=== PATIENT | male | born 1950 ===

== ENCOUNTER 2025-04-05 14:30 | Emergency (ER) | payer MEDICARE, SELFPAY ==
[2025-04-05] VITALS (11 sets, daily range): BP systolic 115–144; BP diastolic 71–87; PULSE 85–97; RESP 18–24; TEMP 36.6–36.7; O2SAT 93–95
--- NOTE | ~2025-04-05 | XR_ITS ---
XR chest 1V portable 04/05/2025 14:54 Indication: Shortness of breath Procedure: AP portable chest Comparison: No prior studies for comparison. Findings: Heart size normal. Mild interstitial edema. No significant effusion. No pneumothorax. No ac bony osseous abnormality. There are changes of spinal fusion at the cervicothoracic junction, partiall y visualized. There are osteotomy changes of the distal aspect of the right clavicle. Impression: 1: Mild interstitial edema. Differential diagnosis includes atypical pneumonia. Reviewed, dictated and finalized at location A. Impression: 1: Mild interstitial edema. Differential diagnosis includes atypical pneumonia.
--- NOTE | ~2025-04-05 | CT_ITS ---
CTA chest PE protocol Ordering provider: Vishal Blakely MD History: 74 years Male with . SOA . Comparison: None. Technique: CT angiogram chest was performed following timed intravenous injection of contrast. Thin s lice axial images and reformatted coronal images were obtained. Three dimensional reformatted images of the chest were also obtained using a [employer] workstation. . Automated exposure control and iterati ve reconstruction technique were employed. The dose-length product was 937.53 mGy-cm. 100 mL Omnipaqu e 350 was given IV. Findings: PULMONARY ARTERIES: No pulmonary embolus. VISUALIZED THORACIC INLET: Normal. MEDIASTINUM: Aorta/coronary arteries: Mild atheromatous disease. Heart/other: The heart is slightly enlarged. Lymph nodes: Prevascular and precarinal lymph nodes are noted with the largest measures 1.5 cm. Subca rinal lymph node measuring 2 cm is also noted. Right hilar lymph node is seen measuring 1.9 cm. LUNGS: Pneumonia in the right upper lobe posteriorly with bibasilar pneumonia more on the left side.. No pul monary nodules or masses. No effusions. No pneumothorax. VISUALIZED UPPER ABDOMEN: Soft tissue density is seen above the left adrenal gland which may be a div erticulum from the stomach.. Further evaluation advised.. Otherwise, the visualized upper abdomen is normal. MUSCULOSKELETAL: Soft tissues: The superficial soft tissues are normal. Bones: Age appropriate degenerative changes of the spine. . Left 11th rib fracture is seen. Postopera tive changes in the cervicothoracic area. IMPRESSION: 1. No pulmonary embolism. 2. Bilateral basal pneumonia more on the left side. Pneumonia in the right upper lobe posteriorly. F ollow-up to resolution advised. 3. Mediastinal lymphadenopathy. 4. Soft tissue density above the left adrenal gland which may be a diverticulum from the stomach. Fu rther evaluation advised. Reviewed, dictated and finalized at location A. IMPRESSION: 1. No pulmonary embolism. 2. Bilateral basal pneumonia more on the left side. Pneumonia in the right upp er lobe posteriorly. Follow-up to resolution advised. 3. Mediastinal lymphadenopathy. 4. Soft tissue density above the left adrenal gland which may be a diverticulu m from the stomach. Further evaluation advised.
--- NOTE | 2025-04-05 14:33 | ECG_ITS ---
Test Date: 2025-04-05 14:38:58 Measurements Intervals [place] Rate: 92 P: 28 NE: 230 QRS: -16 QRSD: 81 T: 18 QT: 329 QTc: 407 Interpretive Statements SINUS RHYTHM WITH FIRST DEGREE AV BLOCK CANNOT RULE OF INFERIOR MYOCARDIAL INFARCTION NONSPECIFIC T-WAVE ABNORMALITY ABNORMAL ECG No previous ECG available for comparison Electronically Signed On 04-06-2025 09:44:55 CDT by Pedro Mcmahan M.D.
--- OUTSIDE RECORDS SUMMARY | 2025-04-05 14:44 | XMS_ITS | Patient Health Record ---
Author Organization [facility] Address [address] [place] [address] Care Team Providers Care Tobacco Warehouse Manager Name Role Phone Faizan Stein Primary Care Provider EBONY Frank Unavailable [phone] MINI FISHER Unavailable [phone] Allergies No Known Allergies Reason For Referral No Information Medications Medication SIG (Take, Route, Frequency, Duration) Notes Start Date End Date Status Metformin 1,000 for -2 *Reorder from [employer] for eRx and Interaction Alerts* 05/20/2016 Active TAMSULOSIN 0.4 for -2 *Reorder from [employer] for eRx and Interaction Alerts* 07/03/2016 Active Amoxicillin-Pot Clavulanate 875-125 MG Oral for -2 09/14/2016 Active ROSELINE for -2 *Reorder from [employer] for eRx and Interaction Alerts* 01/02/2022 Active Simvastatin 40 for -2 *Pick strength-f orm from [employer] for eRX* 07/03/2016 Active Zithromax Z-James 250 MG Oral for -2 01/02/2022 Active Lisinopril 5 MG Oral for -2 05/20/2016 A ctive Ketoprofen 200 for -2 *Pick strength-f orm from [employer] for eRX* 08/20/2016 Active Problems Problem Type SNOMED Code ICD Code Onset Dates Problem Status W/U Status Risk Notes Problem 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 (9366399043242) 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) 06/10/20 22 Active confirmed Problem Old myocardial infarction (7924850) Old myocardial infarction (I25.2) 04/20/20 18 Active confirmed Problem Peripheral vascular disease (971216015) Other specified peripheral vascular diseases (I73.89) 08/06/20 Active confirmed Problem 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) 12/10/19 Active confirmed Problem Callosity (113616886) Corns and callosities (L84) 12/10/19 Active confirmed Problem Chronic ulcer of foot (525717115) 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) 02/26/20 22 Active confirmed Problem Non-pressure chronic ulcer of other part of right foot limited to breakdown of skin (L97.511) 06/10/20 22 Active confirmed Problem Non-pressure chronic ulcer of other part of right foot with fat layer exposed (L97.512) 03/25/20 Active confirmed Problem Long-term current use of anticoagulant (645261314) 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 anticoagulants (Z79.01) 04/20/20 Active confirmed Problem Essential hypertension (32930788) Essential (primary) hypertension (I10) 04/20/20 Active confirmed Vital Signs Height-cm 182.88 cm 08/14/2024 Weight-kg 113.4 kg 08/14/2024 Height 72 in 08/14/2024 Weight 250 lbs 08/14/2024 BMI 33.9 kg/m2 08/14/2024 Encounters Encounter Location Date Provider Diagnosis [facility] [address] [place] [address] 08/07/2024 MINI FISHER Contusion of right great toe with damage to nail, initial encounter S90.211A [facility] [address] [place] [address] 08/14/2024 MINI FISHER Unspecified open wound of right great toe with damage to nail, subsequent encounter S91.201D Assessments Encounter Date Diagnosis (ICD Code) Assessment Notes Treatment Notes Treatment Clinical Notes Section Notes 08/07/2024 Contusion of right great toe with damage to nail, initial encounter (ICD-10 - S90.211A) I was able to perform an evacuation of the subungual hematoma right great toenail. A moderate amount of serosanguineous exudate drain from beneath it. I was also able to perform much debridement of the nail plate to avoid impingement on to the nail bed and continuing the trauma. The patient will apply topical antibiotic and Band-Aid daily. 08/14/2024 Unspecified open wound of right great toe with damage to nail, subsequent encounter (ICD-10 - S91.201D) The patient may stop the topical antibiotic and Band-Aid. I explained that the nail may grow out deformed because of the injury and major problems with recurrent infected ingrown nails. We'll just have to see this as it grows out. Plan Of Treatment No Information Insurance Providers Payer Name Payer Address Payer Phone Subscriber Number Group Number Insured Name Patient Relationship to Insured Coverage Start Date Coverage End Date [employer] MED[employer] [address] [place] [address] [id number] CHRISTIAN CAMACHO Self - patient is the insured 2
--- OUTSIDE RECORDS SUMMARY | 2025-04-05 14:44 | XMS_ITS ---
Author Organization [employer] Address [address] [place] [address] Care Team Providers Care Regional Agronomist Name Role Phone Faizan Stein Primary Care Provider EBONY Frank Unavailable [phone] MINI AMRBIZ Unavailable [phone] REASON FOR VISIT TOE PAIN Medications Medication SIG (Take, Route, Frequency, Duration) Notes Start Date End Date Status TAMSULOSIN 0.4 for -2 *Reorder from [employer] for eRx and Interaction Alerts* 07/03/2016 Active Metformin 1,000 for -2 *Reorder from [employer] for eRx and Interaction Alerts* 05/20/2016 Active Ketoprofen 200 for -2 *Pick strength-f orm from [employer] for eRX* 08/20/2016 Active Zithromax Z-James 250 MG Oral for -2 01/02/2022 Active Lisinopril 5 MG Oral for -2 05/20/2016 A ctive ROSELINE for -2 *Reorder from [employer] for eRx and Interaction Alerts* 01/02/2022 Active Simvastatin 40 for -2 *Pick strength-f orm from [employer] for eRX* 07/03/2016 Active Amoxicillin-Pot Clavulanate 875-125 MG Oral for -2 09/14/2016 Active Vital Signs Height 72 in 08/07/2024 Weight 250 lbs 08/07/2024 BMI 33.9 kg/m2 08/07/2024 Height-cm 182.88 cm 08/07/2024 Weight-kg 113.4 kg 08/07/2024 Encounters Encounter Location Date Provider Diagnosis [employer] [facility] [address] [place] [address] 08/07/2024 MINI AMBRIZ Contusion of right great toe with damage to nail, initial encounter S90.211A Assessments Encounter Date Diagnosis (ICD Code) Assessment [...] will apply topical antibiotic and Band-Aid daily. Plan Of Treatment Treatment Notes Assessment Notes Contusion of right great toe with damage to nail, initial encounter I was able to perform an evacuation of t brittny subungual hematoma right great toenail. A moderate amount of serosanguineous exudate drain from beneath it. I was also able to perform much debridement of the nail plate to avoid impingement on to the nail bed and continuing the trauma. The patient will apply topical antibiotic and Band-Aid daily. Next Appt Details Follow Up: 1 Week, Reason: F ollow-up injured nail Progress Notes * CHRISTIAN CAMACHO DDOB:1950 (74 yo M)Acc No.[id number]:08/07/2024 Patient: CHRISTIAN BARKER Provider: Sarah Ambriz DPM :1950 A ge:74 Y S ex:Male Date:08/07/2024 Address:[address] [place], [place] [id number] Pcp:Faizan Stein Subjective: * Chief Complaints: * T OE PAIN * HPI: T ransition of Care: The patient presents for evaluation of an injured right great toenail after he dropped a shower mount onto it. Pain is moderate by this noted discoloration beneath it and the nail appears raised. He has not performed any treatment for this. He is concerned about swelling of the foot after this occurred. * ROS: G eneral / Constitutional: Patient denies c hills, fatigue, fever. * Medical History: * Surgical History: * Hospitalization/Major Diagno stic Procedure: * Social History: M igrated Social History: M igrated Social History: Smoking : Current Every Day , Recorded Date: 12/10/2022. * Medications: T akingKetoprofen 200 , Notes to Pharmacist: *[facility]*Metformin 1,000 , Notes to Pharmacist: *[facility]*TAMSULOSIN 0.4 , Notes to Pharmacist: *[facility] for [facility]Rx and Interaction Alerts*Amoxicillin-Pot Clavulanate 875-125 MG Tablet Oral ROSELINE , Notes to Pharmacist: *[facility] for [facility] and Interaction Alerts*Simvastatin 40 , Notes to Pharmacist: *[facility] strength[facility] from [facility] for [facility]*Zithromax Z-James 250 MG Tablet Oral Lisinopril 5 MG Tablet Oral Taking Ketoprofen 200 , Notes to Pharmacist: *[facility] from [facility] for [facility]*Taking Metformin 1,000 , Notes to Pharmacist: *[facility] for [facility]Rx and Interaction Alerts*Taking TAMSULOSIN 0.4 , Notes to Pharmacist: *[facility] and Interaction Alert[facility]*Taking Amoxicillin-Pot Clavulanate 875-125 MG Tablet Oral Taking ROSELINE , Notes to Pharmacist: *[facility] and Interaction Alerts*Taking Simvastatin 40 , Notes to Pharmacist: *[facility]*Taking Zithromax Z-James 250 MG Tablet Oral Taking Lisinopril 5 MG Tablet Oral Objective: * Vitals: H t: 72 in, Wt:250lbs, BMI:33.9Index, Wt-k.4 kg, Ht-cm: 182.88 cm, Body Surface Area: 2.4. * Examination: G eneral Examination: T he right great toenail has dark ecchymosis beneath the nail plate. The nail appears raised from the nail bed. There was little edema around the skinfolds and mild erythema present. V ascular: Dorsalis pedis pulse: b ilateral palpable . Posterior tibial pulse: b ilateral palpable . Capillary refill: b ilaterally instantaneous . Temperature gradient: b ilaterally within normal limits . I ntegument: skin color texture turgor WNL except noted above. N eurological: sharp dull sensation proprioception intact. Assessment: * Assessment: 1. C ontusion of right great toe with damage to nail, initial encounter - S90.211A (Primary) Plan: * Treatment: * Procedure Codes: 1 1740 DRAIN BLOOD FROM UNDER NAIL * Follow Up: 1 Week (Reason: Follow-up injured nail) * Billing Information: * Visit Code: * Procedure Codes: 46541 DRAIN BLOOD FROM UNDER NAIL. * Sign off status: Completed true * Provider: Sarah Ambriz DPM Date: 0 08/07/2024 Generated for Beatriz morales/Rosa/Alvino on: 0 04/05/2025 02:44 PM CDT History and Physical Notes * HPI (History of Present Illness) Category Sub-Category Detail Notes Category Not es Transition of Care The patie nt presents for evaluation of an injured right great toenail after he dropped a shower mount onto it. Pain is moderate by this noted discoloration beneath it and the nail appears raised. He has not performed any treatment for this. He is concerned about swelling of the foot after this occurred. Examination Category Sub-Category Detail Notes Category Not es Vascular Dorsalis pedis pulse: bilateral palpable Integument: skin color texture turgor WNL except noted above. Neurological: sharp dull sensation proprioception intact Capillary refill: bilaterally instanta neous Temperature gradient: bilaterally within normal limits Posterior tibial pulse: bilateral palpab le General Examination The righ t great toenail has dark ecchymosis beneath the nail plate. The nail appears raised from the nail bed. There was little edema around the skinfolds and mild erythema present.
--- OUTSIDE RECORDS SUMMARY | 2025-04-05 14:44 | XMS_ITS ---
Author Organization [employer] Address [address] [place] [address] Care Team Providers Care Carbon Paste Mixer Operator Name Role Phone Faizan Stein Primary Care Provider EBONY Frank Unavailable [phone] MINI AMBRIZ Unavailable [phone] REASON FOR VISIT FOLLOW UP Medications Medication SIG (Take, Route, Frequency, Duration) Notes Start Date End Date Status ROSELINE for -2 *Reorder from [employer] for eRx and Interaction Alerts* 01/02/2022 Active Simvastatin 40 for -2 *Pick strength-f orm from [employer] for eRX* 07/03/2016 Active Zithromax Z-James 250 MG Oral for -2 01/02/2022 Active Lisinopril 5 MG Oral for -2 05/20/2016 A ctive Ketoprofen 200 for -2 *Pick strength-f orm from [employer] for eRX* 08/20/2016 Active Metformin 1,000 for -2 *[facility]* 05/20/2016 Active TAMSULOSIN 0.4 for -2 *Reorder from [employer] for eRx and Interaction Alerts* 07/03/2016 Active Amoxicillin-Pot Clavulanate 875-125 MG Oral for -2 09/14/2016 Active Vital Signs Height 72 in 08/14/2024 Weight 250 lbs 08/14/2024 BMI 33.9 kg/m2 08/14/2024 Height-cm 182.88 cm 08/14/2024 Weight-kg 113.4 kg 08/14/2024 Encounters Encounter Location Date Provider Diagnosis [employer] [facility] [address] [place] [address] 08/14/2024 MINI AMBRIZ Unspecified open wound of right great toe with damage to nail, subsequent encounter S91.201D Assessments Encounter Date Diagnosis (ICD Code) Assessment Notes Treatment Notes Treatment Clinical Notes Section Notes 08/14/2024 Unspecified open wound of right great toe with damage to nail, subsequent encounter (ICD-10 - S91.201D) The patient may stop the topical antibiotic and Band-Aid. I explained that the nail may grow out deformed because of the injury and major problems with recurrent infected ingrown nails. We'll just have to see this as it grows out. Plan Of Treatment Treatment Notes Assessment Notes Unspecified open wound of ri ght great toe with damage to nail, subsequent encounter The patient may stop the topical antibiotic and Band-Aid. I explained that the nail may grow out deformed because of the injury and major problems with recurrent infected ingrown nails. We'll just have to see this as it grows out. Next Appt Details Follow Up: prn, Reason: Progress Notes * CAMACHOCHRISTIAN Smith DDOB:1950 (74 yo M)Acc No.[id number]:08/14/2024 Progress Notes Patient: CHRISTIAN BARKER Provider: Sarah Ambriz DPM :1950 A ge:74 Y S ex:Male Date:08/14/2024 Address:[address] [place] [address] [facility] Pcp:Faizan Stein Subjective: * Chief Complaints: * F OLLOW UP * HPI: T ransition of Care: The patient presents for evaluation of injury to the right great toenail and the patient relates that the appearance was much improved. * ROS: G eneral / Constitutional: Patient denies c hills, fatigue, fever. * Medical History: * Surgical History: * Hospitalization/Major Diagno stic Procedure: * Social History: M igrated Social History: M igrated Social History: Smoking : Current Every Day , Recorded Date: 12/10/2022. * Medications: T akingKetoprofen 200 , Notes to Pharmacist: *Pick strength-form from [facility] for eRX*Metformin 1,000 , Notes to Pharmacist: *Reorder from [employer] for eRx and Interaction Alerts*TAMSULOSIN 0.4 , Notes to Pharmacist: *[facility]*Amoxicillin-Pot Clavulanate 875-125 MG Tablet Oral ROSELINE , Notes to Pharmacist: *[facility]*Simvastatin 40 , Notes to Pharmacist: *[facility]*Zithromax Z-James 250 MG Tablet Oral Lisinopril 5 MG Tablet Oral Taking Ketoprofen 200 , Notes to Pharmacist: *[facility]*Taking Metformin 1,000 , Notes to Pharmacist: *[facility]*Taking TAMSULOSIN 0.4 , Notes to Pharmacist: *[facility] and Interaction [facility]*Taking Amoxicillin-Pot Clavulanate 875-125 MG Tablet Oral Taking ROSELINE , Notes to Pharmacist: *[facility] and Interaction [facility]*Taking Simvastatin 40 , Notes to Pharmacist: *[facility]*Taking Zithromax Z-James 250 MG Tablet Oral Taking Lisinopril 5 MG Tablet Oral Objective: * Vitals: H t: 72 in, Wt:250lbs, BMI:33.9Index, Wt-k.4 kg, Ht-cm: 182.88 cm, Body Surface Area: 2.4. * Examination: G eneral Examination: T here is no further erythema, edema, nor drainage for the right great toenail nail bed. No pain is noted on palpation. Assessment: * Assessment: 1. U nspecified open wound of right great toe with damage to nail, subsequent encounter - S91.201D (Primary) Plan: * Treatment: * Procedure Codes: * Follow Up: p rn * Billing Information: * Visit Code: 53332 Office Visit, Est Pt., Level 2. * Procedure Codes: * Sign off status: Completed true * Provider: Sarah Ambriz DPM Date: 08/14/2024 Generated for Maryi carmen/Rosa/Bobitting on: 04/05/2025 02:43 PM CDT History and Physical Notes * HPI (History of Present Illness) Category Sub-Category Detail Notes Category Not es Transition of Care The patie nt presents for evaluation of injury to the right great toenail and the patient relates that the appearance was much improved. Examination Category Sub-Category Detail Notes Category Not es General Examination There is no further erythema, edema, nor drainage for the right great toenail nail bed. No pain is noted on palpation.
--- OUTSIDE RECORDS SUMMARY | 2025-04-05 14:44 | XMS_ITS | Encounter Summary ---
Author Organization [facility] Address [address] [place] [address] Care Team Providers Care Production Trainer Name Role Phone Jason Restrepo MD Unavailable [phone] Faizan Stein MD Primary Care Provider [phone] Branden Berrios APRN Unavailable [phone] Rocky Briseno MD Unavailable [phone] Azam Caraballo MD Unavailable Susana Edwards ASSEMBLER FINAL-BC Unavailable Elvia Ortega NP Unavailable [phone] Richardson Murcia MD Unavailable Encounter Details Date Type Department Care Team (Late st Contact Info) Description 06/14/2015 Abstract [facility] [address] [place] [address] Jason Restrepo MD [address] [place] [address] Social History Tobacco Use Types Packs/Day Years Used Date Smoking Tobacco: Smoker, Current Status Unknown Cigars Alcohol Use Standard Drinks/Week Comments Yes 0 (1 standard drink = 0.6 oz pur e alcohol) On occasion Sex and Gender Information Value Date Recorded Sex Assigned at Not on file Legal Sex Male 8:27 PM CDT Gender Identity Not on file Sexual Orientation Not on file 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 Not on file Not on file documented as of this encounter Plan of Treatment Upcoming Encounters Date Type Department Care Team (Late st Contact Info) Description 02/14/2026 9:45 AM CDT Office Visit [facility] [address] [place] [address] Elvia Ortega, AMALIA [address] [facility] [address] [place] [address] documented as of this encounter Visit Diagnoses Not on filedocumented in this encounter Additional Health Concerns Infection Onset Date Last Indicated Resolved Time COVID-19 Rule Out 07/27/2020 07/27/2020 07/28/2020 11:55 AM CDT documented as of this encounter Care Teams Production Trainer Relationship Specialty Start Date End Date Faizan Stein MD [facility] [place] [address] PCP - General FAMILY PRACTICE 09/13/17 Jason Restrepo MD CARDIOVASCULAR DISEASE 08/19/16 01/26/25 Branden Berrios APRN [facility] [place] [address] Nurse Practitioner NURSE PRACTITIONER 06/12/19 01/26/25 Rocky Briseno MD [address] [place] [address] RECONSTRUCTIVE SURGERY 01/21/22 Azam Caraballo MD [address] [place] [address] Consulting Physician CARDIOVASCULAR DISEASE 01/22/25 Susana Edwards, ASSEMBLER FINAL- [address] [place] [address] NURSE PRACTITIONER 01/18/25 02/13/25 Elvia Ortega NP [address] [facility] [address] [place] [address] Nurse Practitioner Nurse Practitioner Family 02/14/25 Richardson Murcia MD [address] [place], [place] [address] Consulting Physician INTERVENTIONAL CARDIOLOGY 02/14/25 documented as of this encounter
--- OUTSIDE RECORDS SUMMARY | 2025-04-05 14:45 | XMS_ITS | Clinical Summary ---
Author Organization [facility] Address [address] [place] [address] Care Team Providers Care Film Or Tape Librarian Name Role Phone Faizan Stein MD Primary Care Provider Singh Dee MD Unavailable [phone] Allergies Active Allergy Reactions Criticality Noted Date Comments Cat Dander Eye irritation Medium Medications dulaglutide (Trulicity) 1.5 mg/0.5 mL pen injectorIndicati ons:type 2 diabetes mellitus Inject 1.5 mL (4.5 mg total) under the skin once a week Fridays01/10/20 23 Active gabapentin (NEURONTIN) 300 mg capsuleIndicatio ns:Neuropathic Pain Take 2 capsules (600 mg total) by mouth 3 (three) times a day Last dose 03/06/25 3 03/29/20 24 Active flaxseed oiL 1,000 mg capsuleIndicatio ns:supplement Take 1 capsule (1,000 mg total) 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 Active ascorbic acid (VITAMIN C) 1,000 mg tabletIndication s:Vitamin C Deficiency Take 1 tablet (1,000 mg total) 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 Active aspirin 81 mg enteric coated tabletIndication s:prevention of thrombosis Take 1 tablet (81 mg total) 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 Last dose 03/07/25 11/26/19 08 Active lisinopriL (PRINIVIL,ZESTRI L) 5 mg tabletIndication s:hypertension Take 1 tablet (5 mg total) 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 Active metFORMIN (GLUCOPHAGE) 1,000 mg tabletIndication s:type 2 diabetes mellitus Take 1 tablet (1,000 mg total) by mouth daily with breakfast 07/05/20 18 Active multivitamin-min erals-lutein (Multivitamin 50 Plus) tabletIndication s:supplement Take 1 tablet 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 Active acetaminophen 500 mg capsuleIndicatio ns:Fever,Pain Take 2 capsules (1,000 mg total) by mouth every 6 (six) hours 0 03/23/20 25 025 Active albuterol HFA (PROVENTIL HFA,VENTOLIN HFA,PROAIR HFA) 90 mcg/actuation inhaler Inhale 2 puffs every 4 (four) hours as needed for wheezing 0 03/23/20 025 Active atorvastatin (LIPITOR) 10 mg tablet Take 1 tablet (10 mg total) by mouth daily 1 03/24/20 25 025 Active cyclobenzaprine (FLEXERIL) 5 mg tablet Take 1 tablet (5 mg total) by mouth 3 (three) times a day as needed for muscle spasms 0 03/23/20 25 025 Active enoxaparin (LOVENOX) 40 mg/0.4 mL syringeIndicatio ns:Deep Vein Thrombosis Prevention Inject 0.4 mL (40 mg total) under the skin daily While at [facility], okay to discontinue when discharged from Rehab or when Ambulating well 0 03/23/20 25 Active ergocalciferol (VITAMIN D) 50,000 unit capsuleIndicatio ns:Vitamin D Deficiency Take 1 capsule (50,000 Units total) by mouth once a week 0 03/26/20 25 025 Active lidocaine (LIDODERM) 5 % Place 2 patches on the skin daily for 12 hours Remove & discard patch within 12 hours or as directed by . 0 03/24/20 25 025 Active methocarbamoL (ROBAXIN) 750 mg tabletIndication s:Muscle Spasm Take 1 tablet (750 mg total) by mouth 3 (three) times a day 0 03/23/20 25 025 Active polyethylene glycol (MIRALAX) 17 gram packetIndication s:constipation Take 1 packet (17 g total) by mouth daily 0 03/24/20 25 Active senna-docusate (PERICOLACE) 8.6-50 mg Take 2 tablets by mouth 2 (two) times a day 0 03/23/20 25 Active oxyCODONE (ROXICODONE) 5 mg immediate release tabletIndication s:Pain Take 1 tablet (5 mg total) by mouth every 4 (four) hours as needed for pain 15 tablet 07/28/20 24 Discontinu ed(Therapy completed) GaviLyte-G 236-22.74-6.74 -5.86 gram solution 11/23/19 25 Discontinu ed(Therapy completed) mupirocin (BACTROBAN) 2 % ointmentIndicati ons:Methicillin- Resistant S. Aureus Nasal Colonization Apply to each nostril 2 (two) times a day Apply pea size amount into each nostril twice a day for 5 days prior to surgery. 22 g 02/29/20 25 Discontinu ed(Stop Taking at Discharge) acetaminophen (TYLENOL) 325 mg tablet Take 2 tablets (650 mg total) by mouth as needed for pain Discontinu ed(Stop Taking at Discharge) ibuprofen 200 mg tab/cap Take 1 tablet/capsule (200 mg total) by mouth as needed for pain Discontinu ed(Stop Taking at Discharge) naproxen sodium (Aleve) 220 mg capsule Take 2 tablet/capsule by mouth as needed (pain) Discontinu ed(Stop Taking at Discharge) oxyCODONE (ROXICODONE) 5 mg immediate release tabletIndication s:Pain Take 1 tablet (5 mg total) by mouth every 4 (four) hours as needed for pain for up to 7 days 42 tablet 03/23/20 25 Active Problems Problem Noted Date Diagnosed Date Wheezing 03/21/2025 Assessment & Plan (03/21/2025 2:23 PM CDT): --Patient c/o shortness of breath overnight of 03/20 --Audible expiratory wheezes on 03/21 --PRN Albuterol and RT assessment ordered - patient refused citing improvement in SOB Chest pain 03/21/2025 Assessment & Plan (03/21/2025 2:26 PM CDT): --C/o chest pain/SOB overnight of 03/19, Mg 1.9, repleted, trop 18 --C/o transient chest pain again overnight of 03/21, trop 17, BMP without electrolyte abnormalities, EKG demonstrated NSR --Patient reported significant relief on 03/21 Acute postoperative pain 03/18/2025 Assessment & Plan (03/18/2025 10:42 PM CDT): --Weaned off of IV narcotics --Pain managed with Tylenol 1,000 mg q6h, Robaxin 500 mg TID, Oxycodone 5 mg q4h PRN Cervical disc disorder with myelopathy of mid-cervical region 02/28/2025 Assessment & Plan (03/20/2025 4:40 PM CDT): --S/p surgical intervention on 03/14/25, closed with DB, drains x 2 --drain 1 dc'd 03/19, drain 2 dc'd 03/20 --Post-operative imaging obtained 03/17 and 03/18 --Therapy recommends dispo to rehab --Patient to follow-up with Dr. Sharif outpatient Carpal tunnel syndrome 07/28/2024 Carpal tunnel syndrome of right wrist 05/11/2024 Amputated toe 03/26/2016 Ulcer of heel 12/11/2015 Edema of extremities 05/28/2015 Diabetic neuropathy 04/26/2015 Ulcer of foot 04/26/2015 Diabetic foot ulcer 03/20/2015 Diabetes mellitus 08/27/2014 Assessment & Plan (03/18/2025 10:41 PM CDT): --A1C 7.3 as of 03/08/25 --Home regimen consists of Trulicity, Metformin --Endocrine diabetes consulted for blood sugar management while patient is ordered dexamethasone. --03/18 Endo recs: Trulicity 1.5 mg this week, then increase next week, sliding scale insulin five times per day, 30 units lantus daily, 6 units prandial lispro Peripheral vascular disease 08/27/2014 Type 2 diabetes mellitus 08/27/2014 Sprain of rotator cuff capsule 03/16/2011 Rupture of biceps tendon 03/16/2011 Encounters Date Type Department Care Team Description 03/14/2025 8:30 AM CDT - 03/14/2025 3:50 PM CDT Surgery [facility] [address] [place] [address] Josh Sharif MD PhD FUSION CERVICAL/THORACIC - POSTERIOR WITH INSTRUMENTATION C2-T2 Posterior Spinal Fusion, C3-4 Decompression 03/14/2025 8:19 AM CDT Anesthesia Event [facility] [address] [place] [address] Evan Cintron MD Dippolito, Jenny Irene, NP 03/14/2025 6:15 AM CDT - 03/23/2025 5:45 PM CDT Hospital Encounter [address] [address] Josh Sharif MD PhD Marychuy Worthington MD Cervical disc disorder with myelopathy of mid-cervical region (Primary Dx) Discharge Disposition: Discharge to an Rehab facility 03/08/2025 9:00 AM CDT Lab [facility] [address] [place] [address] Preop testing; Type 2 diabetes mellitus treated without insulin (HCC); Cervical disc disorder with myelopathy of mid-cervical region 03/08/2025 8:30 AM CDT Pre-Admission Testing [facility] Pre Anesthesia Testing [address] [place] [address] Preop testing (Primary Dx); Type 2 diabetes mellitus treated without insulin (HCC) 03/08/2025 8:10 AM CDT Clinical Support [facility] [address] [place] [address] Screening for osteoporosis (Primary Dx); Carpal tunnel syndrome on both sides; Pain of left upper extremity; Cervical disc disorder with myelopathy of mid-cervical region; Osteopenia of multiple sites 02/28/2025 Telephone [facility] Neurosurgery [address] [place] [address] Medical Office Building [address] [place] [address] Josh Sharif MD PhD 02/27/2025 2:47 PM CDT - 02/27/2025 11:59 PM CDT Hospital Encounter [facility] [address] [place] [address] Discharge Disposition: Discharge to home or self care 02/27/2025 12:04 PM CDT - 02/27/2025 11:59 PM CDT Hospital Encounter [facility] [address] [place] [address] [address] [place] [phone] Cervical disc disorder with myelopathy of mid-cervical region; Pain of left upper extremity Discharge Disposition: Discharge to home or self care 02/27/2025 10:15 AM CDT Office Visit [facility] Neurosurgery [address] [place] [address] Medical Office Building [address] [place] [phone] Jean Carlson PA Cervical disc disorder with myelopathy of mid-cervical region (Primary Dx); Pain of left upper extremity; Carpal tunnel syndrome on both sides; Generalized hyperreflexia 02/27/2025 Orders Only [facility] Neurosurgery [address] [place] [address] Medical Office Building [address] [place] [phone] Josh Sharif MD PhD Pain of left upper extremity (Primary Dx); Cervical disc disorder with myelopathy of mid-cervical region 02/05/2025 5:49 PM CDT - 02/05/2025 11:59 PM CDT Hospital Encounter [facility] [address] [place] [address] Discharge Disposition: Discharge to home or self care 02/05/2025 1:00 PM CDT Office Visit [facility] Neurosurgery [address] [place] [address] Medical Office [facility] [address] [place] [phone] Andrew Mendoza PA Cervical disc disorder with myelopathy of mid-cervical region (Primary Dx); Pain of left upper extremity; Carpal tunnel syndrome on both sides; Generalized hyperreflexia 02/05/2025 12:30 PM CDT - 02/05/2025 11:59 PM CDT Hospital Encounter [facility] [address] [place] [address] Cervical pain (neck) Discharge Disposition: Discharge to home or self care 02/05/2025 Telephone [facility] Neurosurgery [address] Medical Office Building [address] [place] [address] Andrew Mendoza PA 02/01/2025 Orders Only [facility] Neurosurgery [address] Medical Office Building [address] [place] [address] Andrew Mendoza PA Cervical pain (neck) (Primary Dx) 01/10/2025 Telephone [facility] Scheduling [address] [place] [address] Lia Bangura 01/08/2025 Orders Only [facility] General Neurology [address] 6[address] [place] [address] Anna Carrillo Pain of left upper extremity (Primary Dx); Carpal tunnel syndrome on both sides; Generalized hyperreflexia from Last 3 Months Surgical History Surgery Date Site/Laterality Comments US BONE BIOPSY SUPERFICIAL 09/05/2014 N/A TRACHEOSTOMY 09/22/1979 - 10/21/1979 then removed within 10 days ANTERIOR CRUCIATE LIGAMENT REPAIR Bilateral 1979's x2 ROTATOR CUFF REPAIR Bilateral pt states was too long to remember time frame HERNIA REPAIR 11/22/1959 - 11/21/1960 ANKLE FUSION Left CARPAL TUNNEL RELEASE 07/23/2024 - 08/21/2024 Bilateral multiple COLONOSCOPY 11/22/2024 - 11/21/2025 Medical History Medical History Date Comments Diabetes mellitus (HCC) HTN (hypertension) PA (myocardial infarction) (HCC) H/O heart surgery cardiac stents X4 Family History Medical History Relation Name Comments Anesthesia problems Neg Hx Social History Tobacco Use Types Packs/Day Years Used Date Smoking Tobacco: Former Cigarettes Q uit: 1970 Smokeless Tobacco: Never Tobacco Cessation:Counseling Given: No AUDIT-C Answer Date Recorded Q1: How often do you have a drink containing alc ohol? Monthly or less 03/14/2025 Q2: How many drinks containi ng alcohol do you have on a typical day when you are drinking? 1 or 2 03/14/2025 Q3: How often do you have si x or more drinks on one occasion? Never 03/14/2025 Personal Safety Answer Date Recorded Have you ever been in or are you currently in a harmful physical or emotional relationship or is someone making you feel afraid or unsafe? 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 Gender Identity Not on file Sexual Orientation Not on file Obstetrics History Last Filed Vital Signs Vital Sign Reading Time Taken Comments Blood Pressure 121/64 03/23/2025 11:30 AM CDT Pulse 92 03/23/2025 11:30 AM CDT Temperature 36.9 C (98.4 F) 03/23/2025 11:30 AM CDT Respiratory Rate 17 03/23/2025 11:30 AM CDT Oxygen Saturation 98% 03/23/2025 11:30 AM CDT Inhaled Oxygen Concentration - - Weight 122.3 kg (269 lb 10 oz) 03/14/2025 8:27 P M CDT Height 182.9 cm (6' 0.01 ) 03/15/2025 6:20 AM CD T Body Mass Index 36.56 03/14/2025 8:27 PM CDT Plan of Treatment Health Maintenance Due Date Last Done Comments Albumin Creatinine Ratio, Urine 1950 Colon Cancer Screening-Colonoscopy 1950 Depression Screening 1950 Hepatitis C Screening 1950 Dilated Eye Exam 1950 Foot Exam 1950 DTaP/Tdap/Td Vaccine (1 - Tdap) 1960 Hepatitis B Screening 1967 Abdominal Aortic Aneurysm (A AA) Screen 2014 Well Visit 65+ 2014 Zoster Vaccine (2 of 2) 02/11/2023 12/17/2022 Covid-19 Vaccine (3 - 2023-2 5 season) 2024 01/17/2021, 12/26/2020 Influenza Vaccine (Season Ended) 2025 08/19/2023, 09/10/2022, 09/01/2019, Additional history exists Hemoglobin A1C 09/07/2025 03/08/2025 Lipid Panel 03/14/2026 03/14/2025, 03/22/2023 eGFR 03/22/2026 03/22/2025, 02/22, 03/21/2025, Additional history exists Fall Risk Assessment 03/23/2026 03/23/2025 Pneumococcal vaccine 65+ Completed 08/18/2017, 08/23 Medical Devices Implanted Type Area Paid Search Marketing Strategist Device Identifier Shelf Expiration Date Model / Serial / Lot Stent Heart Description:X4 [employer] Man Seprafilm 6x5in Barrier Adhesion Sterile Disposable Latex Free [id number] - [id number] Implanted:Qty: 1 on 07/28/2024 by Brittany Harrison MD at [facility] Right: [employer] Man 02/18/2026 [id number] / / [employer] Virage 3.5mm 16mm Polyaxial Spine Screw Bone Nonsterile 07.42224.009 - [id number] Implanted:Qty: 3 on 03/14/2025 by Josh Sharif MD PhD at [facility] N/A: Spine Cervical [employer] 07.36475.0 09 / / [employer] Virage 3.5mm 14mm Polyaxial Spine Screw Bone Nonsterile 07.91517.007 - [id number] Implanted:Qty: 3 on 03/14/2025 by Josh Sharif MD PhD at [facility] N/A: Spine Cervical [employer] 07.65426.0 07 / / [employer] Screw Spinal Pedicle Polyaxial Solid Virage 5.5x25mm 07.23227.019 - [id number] Implanted:Qty: 4 on 03/14/2025 by Josh Sharif MD PhD at [facility] N/A: Spine Cervical [employer] 07.83743.0 19 / / [employer] Virage 4mm 14mm Self Tap Polyaxial Friction Fit Spine Screw Bone 07.39439.050 - [id number] Implanted:Qty: 1 on 03/14/2025 by Josh Sharif MD PhD at [facility] N/A: Spine Cervical [employer] 07.54161.0 50 / / [employer] Virage 3.5mm 120mm Curve [place] Spinal Titanium Oct Fixation System 07.80389.014 - [id number] Implanted:Qty: 2 on 03/14/2025 by Josh Sharif MD PhD at [facility] N/A: Spine Cervical [employer] 07.36608.0 14 / / [employer] Virage 4mm 16mm Self Tap Polyaxial Friction Fit Spine Screw Bone 07.06506.052 - [id number] Implanted:Qty: 1 on 03/14/2025 by Josh Sharif MD PhD at [facility] N/A: Spine Cervical [employer] 07.09155.0 52 / / [employer] Virage Closure Top Lid Sterilization Nonsterile Disposable Screw 07.35693.001 - [id number] Implanted:Qty: 13 on 03/14/2025 by Josh Sharif MD PhD at [facility] N/A: Spine Cervical [employer] 07.55684.0 01 / / [employer] Virage Closure Top Lid Sterilization Nonsterile Disposable Screw 07.81927.001 - [id number] Implanted:Qty: 9 on 03/14/2025 by Josh Sharif MD PhD at [facility] N/A: Spine Cervical [employer] 07.77504.0 01 / / [employer] Graft Bone Filler Cortical Allosync 10cc Fiber Abs-2008-02 - [id number] - [id number] Implanted:Qty: 1 on 03/14/2025 by Josh Sharif MD PhD at [facility] [employer] [id number] 06/09/2029-2007- 0 4 / [id number] / [employer] Graft Bone Filler Cortical Allosync 10cc Fiber - [id number] - [id number] Implanted:Qty: 1 on 03/14/2025 by Josh Sharif MD PhD at [facility] [employer] [id number] 06/09/2029 ABS-2007- 0 4 / [id number] / [employer] Graft Bone Filler Cortical Allosync 10cc Fiber Abs-2008-02 - [id number] - [id number] Implanted:Qty: 1 on 03/14/2025 by Josh Sharif MD PhD at [facility] N/A: Spine Cervical [employer] [id number] 06/09/2029 ABS-2007-0 4 / [id number] / [employer] Graft Bone Filler Cortical Allosync 10cc Fiber Abs-2008-02 - [id number] - [id number] Implanted:Qty: 1 on 03/14/2025 by Josh Sharif MD PhD at [facility] N/A: Spine Cervical [employer] [id number] 06/09/2029 ABS-2007-0 4 / [id number] / [employer] Graft Bone Filler Cortical Allosync 10cc Fiber Abs-2008-02 - [id number] - [id number] Implanted:Qty: 1 on 03/14/2025 by Josh Sharif MD PhD at [facility] N/A: Spine Cervical [employer] [id number] 06/08/2029 ABS- 4 / [id number] / [employer] Virage 4mm 18mm Self Tap Polyaxial Friction Fit Spine Screw Bone 07.37337.054 - [id number] Implanted:Qty: 1 on 03/14/2025 by Josh Sharif MD PhD at [facility] N/A: Spine Cervical [employer] 07.32676.0 54 / / [employer] Spine Graft Bone Filler Lg Fibergraft Bg 12.5cc Fibers [id number] - [id number] Implanted:Qty: 1 on 03/14/2025 by Josh Sharif MD PhD at [facility] N/A: Spine Cervical [employer] Spine [id number] / / Procedures Procedure Name Priority Date/Time Associated Diagnosis Comments POCT GLUCOSE DEVICE Routine 03/23/2025 1 2:07 PM CDT POCT GLUCOSE DEVICE Routine 03/23/2025 8 :42 AM CDT POCT GLUCOSE DEVICE Routine 03/23/2025 3 :20 AM CDT POCT GLUCOSE DEVICE Routine 03/22/2025 8 :09 PM CDT EGFR Routine 03/22/2025 8:08 PM CDT DIFFERENTIAL AUTO Routine 03/22/2025 8:0 8 PM CDT PHOSPHORUS Routine 03/22/2025 8:08 PM CDT BASIC METABOLIC PANEL Routine 03/22/2025 8:08 PM CDT CBC WITH AUTO DIFFERENTIAL Routine 03/22/2025 8:08 PM CDT POCT GLUCOSE DEVICE Routine 03/22/2025 4 :41 PM CDT POCT GLUCOSE DEVICE Routine 03/22/2025 1 1:29 AM CDT POCT GLUCOSE DEVICE Routine 03/22/2025 7 :28 AM CDT POCT GLUCOSE DEVICE Routine 03/22/2025 2 :25 AM CDT EGFR Routine 03/21/2025 10:33 PM CDT DIFFERENTIAL AUTO Routine 03/21/2025 10: 33 PM CDT PHOSPHORUS Routine 03/21/2025 10:33 PM CDT BASIC METABOLIC PANEL Routine 03/21/2025 10:33 PM CDT CBC WITH AUTO DIFFERENTIAL Routine 03/21/2025 10:33 PM CDT POCT GLUCOSE DEVICE Routine 03/21/2025 8 :31 PM CDT POCT GLUCOSE DEVICE Routine 03/21/2025 4 :48 PM CDT POCT GLUCOSE DEVICE Routine 03/21/2025 1 1:35 AM CDT POCT GLUCOSE DEVICE Routine 03/21/2025 7 :38 AM CDT TROPONIN I HIGH-SENSITIVITY 2-HOUR Timed 03/21/2025 5:40 AM CDT EGFR Routine 03/21/2025 3:36 AM CDT DIFFERENTIAL AUTO Routine 03/21/2025 3:3 6 AM CDT PHOSPHORUS STAT 03/21/2025 3:36 AM CDT MAGNESIUM STAT 03/21/2025 3:36 AM CDT TROPONIN I HIGH-SENSITIVITY SERIES (BASELINE, 2HR, 4HR, 6HR) STAT 03/21/2025 3:36 AM CDT PHOSPHORUS Routine 03/21/2025 3:36 AM CDT BASIC METABOLIC PANEL Routine 03/21/2025 3:36 AM CDT CBC WITH AUTO DIFFERENTIAL Routine 03/21/2025 3:36 AM CDT TYPE AND SCREEN Timed 03/21/2025 3:36 AM CDT POCT GLUCOSE DEVICE Routine 03/21/2025 2 :06 AM CDT POCT GLUCOSE DEVICE Routine 03/20/2025 8 :32 PM CDT POCT GLUCOSE DEVICE Routine 03/20/2025 4 :50 PM CDT POCT GLUCOSE DEVICE Routine 03/20/2025 1 1:59 AM CDT TROPONIN I HIGH-SENSITIVITY 6-HOUR Timed 03/20/2025 10:43 AM CDT POCT GLUCOSE DEVICE Routine 03/20/2025 7 :40 AM CDT TROPONIN I HIGH-SENSITIVITY 4-HOUR Timed 03/20/2025 7:17 AM CDT TROPONIN I HIGH-SENSITIVITY 2-HOUR Timed 03/20/2025 5:12 AM CDT EGFR STAT 03/20/2025 3:33 AM CDT TROPONIN I HIGH-SENSITIVITY SERIES (BASELINE, 2HR, 4HR, 6HR) Routine 03/20/2025 3:33 AM CDT PHOSPHORUS STAT 03/20/2025 3:33 AM CDT MAGNESIUM STAT 03/20/2025 3:33 AM CDT BASIC METABOLIC PANEL STAT 03/20/2025 3:33 AM CDT ECG 12-LEAD STAT 03/20/2025 3:25 AM CDT POCT GLUCOSE DEVICE Routine 03/20/2025 2 :05 AM CDT EGFR Routine 03/19/2025 11:02 PM CDT DIFFERENTIAL AUTO Routine 03/19/2025 11: 02 PM CDT PHOSPHORUS Routine 03/19/2025 11:02 PM CDT BASIC METABOLIC PANEL Routine 03/19/2025 11:02 PM CDT CBC WITH AUTO DIFFERENTIAL Routine 03/19/2025 11:02 PM CDT POCT GLUCOSE DEVICE Routine 03/19/2025 8 :51 PM CDT POCT GLUCOSE DEVICE Routine 03/19/2025 4 :35 PM CDT POCT GLUCOSE DEVICE Routine 03/19/2025 1 1:27 AM CDT POCT GLUCOSE DEVICE Routine 03/19/2025 7 :43 AM CDT POTASSIUM, WHOLE BLOOD STAT 5:18 AM CDT POCT GLUCOSE DEVICE Routine 03/19/2025 2 :02 AM CDT EGFR Routine 03/18/2025 8:26 PM CDT DIFFERENTIAL AUTO Routine 03/18/2025 8:2 6 PM CDT PHOSPHORUS Routine 03/18/2025 8:26 PM CDT BASIC METABOLIC PANEL Routine 03/18/2025 8:26 PM CDT CBC WITH AUTO DIFFERENTIAL Routine 03/18/2025 8:26 PM CDT POCT GLUCOSE DEVICE Routine 03/18/2025 8 :21 PM CDT POCT GLUCOSE DEVICE Routine 03/18/2025 4 :20 PM CDT POCT GLUCOSE DEVICE Routine 03/18/2025 1 1:36 AM CDT XR SCOLIOSIS AP LAT IP Routine 03/18/2025 1 1:11 AM CDT POCT GLUCOSE DEVICE Routine 03/18/2025 7 :38 AM CDT POCT GLUCOSE DEVICE Routine 03/18/2025 4 :06 AM CDT POCT GLUCOSE DEVICE Routine 03/17/2025 1 1:49 PM CDT POCT GLUCOSE DEVICE Routine 03/17/2025 8 :01 PM CDT EGFR Routine 03/17/2025 6:34 PM CDT DIFFERENTIAL AUTO Routine 03/17/2025 6:3 4 PM CDT PHOSPHORUS Routine 03/17/2025 6:34 PM CDT MAGNESIUM Routine 03/17/2025 6:34 PM CDT BASIC METABOLIC PANEL Routine 03/17/2025 6:34 PM CDT CBC WITH AUTO DIFFERENTIAL Routine 03/17/2025 6:34 PM CDT TYPE AND SCREEN Timed 03/17/2025 6:34 PM CDT PHOSPHORUS Timed 03/17/2025 6:34 PM CDT XR SPINE CERVICAL 2 OR 3 VIEWS IP Routine 03/17/2025 5:49 PM CDT POCT GLUCOSE DEVICE Routine 03/17/2025 5 :00 PM CDT POCT GLUCOSE DEVICE Routine 03/17/2025 3 :05 PM CDT POCT GLUCOSE DEVICE Routine 03/17/2025 1 2:37 PM CDT CRITICAL CARE Routine 03/17/2025 11:41 AM CDT Cervical disc disorder with myelopathy of mid-cervical region POCT GLUCOSE DEVICE Routine 03/17/2025 1 1:04 AM CDT POCT GLUCOSE DEVICE Routine 03/17/2025 1 0:16 AM CDT POCT GLUCOSE DEVICE Routine 03/17/2025 9 :30 AM CDT POCT GLUCOSE DEVICE Routine 03/17/2025 7 :08 AM CDT POCT GLUCOSE DEVICE Routine 03/17/2025 5 :11 AM CDT POCT GLUCOSE DEVICE Routine 03/17/2025 3 :38 AM CDT POCT GLUCOSE DEVICE Routine 03/17/2025 1 :11 AM CDT POCT GLUCOSE DEVICE Routine 03/17/2025 1 2:05 AM CDT POCT GLUCOSE DEVICE Routine 03/17/2025 1 2:04 AM CDT POCT GLUCOSE DEVICE Routine 03/16/2025 1 0:29 PM CDT POCT GLUCOSE DEVICE Routine 03/16/2025 9 :02 PM CDT CRITICAL CARE Routine 03/16/2025 7:48 PM CDT Cervical disc disorder with myelopathy of mid-cervical region POCT GLUCOSE DEVICE Routine 03/16/2025 7 :25 PM CDT POCT GLUCOSE DEVICE Routine 03/16/2025 6 :16 PM CDT POCT GLUCOSE DEVICE Routine 03/16/2025 5 :21 PM CDT CRITICAL CARE Routine 03/16/2025 3:31 PM CDT Cervical disc disorder with myelopathy of mid-cervical region POCT GLUCOSE DEVICE Routine 03/16/2025 3 :04 PM CDT POCT GLUCOSE DEVICE Routine 03/16/2025 1 :13 PM CDT POCT GLUCOSE DEVICE Routine 03/16/2025 1 2:04 PM CDT POCT GLUCOSE DEVICE Routine 03/16/2025 1 0:51 AM CDT Results for this procedure are [id number]|2025-04-05 14:45:00|2025-04-05 14:44:00|XMS_ITS|BKG DAEMON|External Medical Summaries|[id number]|" Referral Summary Created on: April 05, 2025 Mikhail Contreras : 1950 Sex: Male Author Organization [facility] Address [address] [place] [phone] Care Team Providers Care Film Or Tape Librarian Name Role Phone Faizan Stein MD Primary Care Provider Singh Dee MD Unavailable [phone] Encounters Date Type Department Care Team Description 03/14/2025 6:15 AM CDT - 03/23/2025 5:45 PM CDT Hospital Encounter [address] [id number] Josh Sharif MD PhD Marychuy Worthington MD Cervical disc disorder with myelopathy of mid-cervical region (Primary Dx) Discharge Disposition: Discharge to an Rehab facility 03/14/2025 8:30 AM CDT - 03/14/2025 3:50 PM CDT Surgery [facility] [address] [place] [phone] Josh Sharif MD PhD FUSION CERVICAL/THORACIC - POSTERIOR WITH INSTRUMENTATION C2-T2 Posterior Spinal Fusion, C3-4 Decompression 03/14/2025 8:19 AM CDT Anesthesia Event [facility] [address] [place] [address] Evan Cintron MD Dippolito, Jenny Irene, NP 03/08/2025 9:00 AM CDT Lab [facility] [address] [place] [address] Preop testing; Type 2 diabetes mellitus treated without insulin (HCC); Cervical disc disorder with myelopathy of mid-cervical region 03/08/2025 8:10 AM CDT Clinical Support [facility] [address] [place] [address] Screening for osteoporosis (Primary Dx); Carpal tunnel syndrome on both sides; Pain of left upper extremity; Cervical disc disorder with myelopathy of mid-cervical region; Osteopenia of multiple sites 03/08/2025 8:30 AM CDT Pre-Admission Testing [facility] Pre Anesthesia Testing [address] [place] [address] Preop testing (Primary Dx); Type 2 diabetes mellitus treated without insulin (HCC) 02/28/2025 Telephone [facility] [address] [place] [phone] Josh Sharif MD PhD 02/27/2025 2:47 PM CDT - 02/27/2025 11:59 PM CDT Hospital Encounter [facility] [address] [place] [address] Discharge Disposition: Discharge to home or self care 02/27/2025 12:04 PM CDT - 02/27/2025 11:59 PM CDT Hospital Encounter [facility] [address] [place] [phone] Cervical disc disorder with myelopathy of mid-cervical region; Pain of left upper extremity Discharge Disposition: Discharge to home or self care 02/27/2025 Orders Only [facility] Neurosurgery [address] [place] [address] Office [facility] [address] [place] [address] Josh Sharif MD PhD Pain of left upper extremity (Primary Dx); Cervical disc disorder with myelopathy of mid-cervical region 02/27/2025 10:15 AM CDT Office Visit [facility] Neurosurgery [address] [place] [address] Office [facility] [address] [place] [address] Jean Carlson PA Cervical disc disorder with myelopathy of mid-cervical region (Primary Dx); Pain of left upper extremity; Carpal tunnel syndrome on both sides; Generalized hyperreflexia 02/05/2025 5:49 PM CDT - 02/05/2025 11:59 PM CDT Hospital Encounter [facility] ([facility]) [address] [place] [phone] Discharge Disposition: Discharge to home or self care 02/05/2025 Telephone [facility] Neurosurgery [address] [place] [address] Office [facility] [address] [place] [phone] Andrew Mendoza PA 02/05/2025 12:30 PM CDT - 02/05/2025 11:59 PM CDT Hospital Encounter [facility] [address] [place] [address] [address] [place] [address] Cervical pain (neck) Discharge Disposition: Discharge to home or self care 02/05/2025 1:00 PM CDT Office Visit [facility] Neurosurgery [address] [place] [address] Office [facility] [address] [place] [address] Andrew Mendoza PA Cervical disc disorder with myelopathy of mid-cervical region (Primary Dx); Pain of left upper extremity; Carpal tunnel syndrome on both sides; Generalized hyperreflexia 02/01/2025 Orders Only [facility] Neurosurgery [address] [place] [address] Office [facility] [address] [place] [address] Andrew Mendoza PA Cervical pain (neck) (Primary Dx) 01/10/2025 Telephone [facility] Scheduling [address] [place] [address] Lia Bangura 01/08/2025 Orders Only [facility] General Neurology [address] 6[address] [place] [address] Anna Carrillo Pain of left upper extremity (Primary Dx); Carpal tunnel syndrome on both sides; Generalized hyperreflexia from Last 3 Months Allergies Active Allergy Reactions Criticality Noted Date Comments Cat Dander Eye irritation Medium Medications dulaglutide (Trulicity) 1.5 mg/0.5 mL pen injectorIndicati ons:type 2 diabetes mellitus Inject 1.5 mL (4.5 mg total) under the skin once a week Fridays01/10/20 23 Active gabapentin (NEURONTIN) 300 mg capsuleIndicatio ns:Neuropathic Pain Take 2 capsules (600 mg total) by mouth 3 (three) times a day Last dose 03/06/25 3 03/29/20 24 Active flaxseed oiL 1,000 mg capsuleIndicatio ns:supplement Take 1 capsule (1,000 mg total) 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 Active ascorbic acid (VITAMIN C) 1,000 mg tabletIndication s:Vitamin C Deficiency Take 1 tablet (1,000 mg total) 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 Active aspirin 81 mg enteric coated tabletIndication s:prevention of thrombosis Take 1 tablet (81 mg total) 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 Last dose 03/07/25 11/26/19 08 Active lisinopriL (PRINIVIL,ZESTRI L) 5 mg tabletIndication s:hypertension Take 1 tablet (5 mg total) 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 Active metFORMIN (GLUCOPHAGE) 1,000 mg tabletIndication s:type 2 diabetes mellitus Take 1 tablet (1,000 mg total) by mouth daily with breakfast 07/05/20 18 Active multivitamin-min erals-lutein (Multivitamin 50 Plus) tabletIndication s:supplement Take 1 tablet 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 Active acetaminophen 500 mg capsuleIndicatio ns:Fever,Pain Take 2 capsules (1,000 mg total) by mouth every 6 (six) hours 0 03/23/20 25 025 Active albuterol HFA (PROVENTIL HFA,VENTOLIN HFA,PROAIR HFA) 90 mcg/actuation inhaler Inhale 2 puffs every 4 (four) hours as needed for wheezing 0 03/23/20 25 025 Active atorvastatin (LIPITOR) 10 mg tablet Take 1 tablet (10 mg total) by mouth daily 1 03/24/20 25 Active cyclobenzaprine (FLEXERIL) 5 mg tablet Take 1 tablet (5 mg total) by mouth 3 (three) times a day as needed for muscle spasms 0 03/23/20 25 025 Active enoxaparin (LOVENOX) 40 mg/0.4 mL syringeIndicatio ns:Deep Vein Thrombosis Prevention Inject 0.4 mL (40 mg total) under the skin daily While at [facility], okay to discontinue when discharged from Rehab or when Ambulating well 0 03/23/20 25 Active ergocalciferol (VITAMIN D) 50,000 unit capsuleIndicatio ns:Vitamin D Deficiency Take 1 capsule (50,000 Units total) by mouth once a week 0 03/26/20 25 025 Active lidocaine (LIDODERM) 5 % Place 2 patches on the skin daily for 12 hours Remove & discard patch within 12 hours or as directed by . 0 03/24/20 25 025 Active methocarbamoL (ROBAXIN) 750 mg tabletIndication s:Muscle Spasm Take 1 tablet (750 mg total) by mouth 3 (three) times a day 0 03/23/20 25 025 Active polyethylene glycol (MIRALAX) 17 gram packetIndication s:constipation Take 1 packet (17 g total) by mouth daily 0 03/24/20 25 025 Active senna-docusate (PERICOLACE) 8.6-50 mg Take 2 tablets by mouth 2 (two) times a day 0 03/23/20 25 025 Active oxyCODONE (ROXICODONE) 5 mg immediate release tabletIndication s:Pain Take 1 tablet (5 mg total) by mouth every 4 (four) hours as needed for pain 15 tablet 07/28/20 24 025 Discontinu ed(Therapy completed) GaviLyte-G 236-22.74-6.74 -5.86 gram solution 11/23/19 Discontinu ed(Therapy completed) mupirocin (BACTROBAN) 2 % ointmentIndicati ons:Methicillin- Resistant S. Aureus Nasal Colonization Apply to each nostril 2 (two) times a day Apply pea size amount into each nostril twice a day for 5 days prior to surgery. 22 g 02/29/20 25 Discontinu ed(Stop Taking at Discharge) acetaminophen (TYLENOL) 325 mg tablet Take 2 tablets (650 mg total) by mouth as needed for pain Discontinu ed(Stop Taking at Discharge) ibuprofen 200 mg tab/cap Take 1 tablet/capsule (200 mg total) by mouth as needed for pain Discontinu ed(Stop Taking at Discharge) naproxen sodium (Aleve) 220 mg capsule Take 2 tablet/capsule by mouth as needed (pain) Discontinu ed(Stop Taking at Discharge) oxyCODONE (ROXICODONE) 5 mg immediate release tabletIndication s:Pain Take 1 tablet (5 mg total) by mouth every 4 (four) hours as needed for pain for up to 7 days 42 tablet 03/23/20 Active Problems Problem Noted Date Diagnosed Date Wheezing 03/21/2025 Assessment & Plan (03/21/2025 2:23 PM CDT): --Patient c/o shortness of breath overnight of 03/20 --Audible expiratory wheezes on 03/21 --PRN Albuterol and RT assessment ordered - patient refused citing improvement in SOB Chest pain 03/21/2025 Assessment & Plan (03/21/2025 2:26 PM CDT): --C/o chest pain/SOB overnight of 03/19, Mg 1.9, repleted, trop 18 --C/o transient chest pain again overnight of 03/21, trop 17, BMP without electrolyte abnormalities, EKG demonstrated NSR --Patient reported significant relief on 03/21 Acute postoperative pain 03/18/2025 Assessment & Plan (03/18/2025 10:42 PM CDT): --Weaned off of IV narcotics --Pain managed with Tylenol 1,000 mg q6h, Robaxin 500 mg TID, Oxycodone 5 mg q4h PRN Cervical disc disorder with myelopathy of mid-cervical region 02/28/2025 Assessment & Plan (03/20/2025 4:40 PM CDT): --S/p surgical intervention on 03/14/25, closed with DB, drains x 2 --drain 1 dc'd 03/19, drain 2 dc'd 03/20 --Post-operative imaging obtained 03/17 and 03/18 --Therapy recommends dispo to rehab --Patient to follow-up with Dr. Sharif outpatient Carpal tunnel syndrome 07/28/2024 Carpal tunnel syndrome of right wrist 05/11/2024 Amputated toe 03/26/2016 Ulcer of heel 12/11/2015 Edema of extremities 05/28/2015 Diabetic neuropathy 04/26/2015 Ulcer of foot 04/26/2015 Diabetic foot ulcer 03/20/2015 Diabetes mellitus 08/27/2014 Assessment & Plan (03/18/2025 10:41 PM CDT): --A1C 7.3 as of 03/08/25 --Home regimen consists of Trulicity, Metformin --Endocrine diabetes consulted for blood sugar management while patient is ordered dexamethasone. --03/18 Endo recs: Trulicity 1.5 mg this week, then increase next week, sliding scale insulin five times per day, 30 units lantus daily, 6 units prandial lispro Peripheral vascular disease 08/27/2014 Type 2 diabetes mellitus 08/27/2014 Sprain of rotator cuff capsule 03/16/2011 Rupture of biceps tendon 03/16/2011 Social History Tobacco Use Types Packs/Day Years Used Date Smoking Tobacco: Former Cigarettes Q uit: 1970 Smokeless Tobacco: Never Tobacco Cessation:Counseling Given: No AUDIT-C Answer Date Recorded Q1: How often do you have a drink containing alc ohol? Monthly or less 03/14/2025 Q2: How many drinks containi ng alcohol do you have on a typical day when you are drinking? 1 or 2 03/14/2025 Q3: How often do you have si x or more drinks on one occasion? Never 03/14/2025 Personal Safety Answer Date Recorded Have you ever been in or are you currently in a harmful physical or emotional relationship or is someone making you feel afraid or unsafe? 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 Gender Identity Not on file Sexual Orientation Not on file Last Filed Vital Signs Vital Sign Reading Time Taken Comments Blood Pressure 121/64 03/23/2025 11:30 AM CDT Pulse 92 03/23/2025 11:30 AM CDT Temperature 36.9 C (98.4 F) 03/23/2025 11:30 AM CDT Respiratory Rate 17 03/23/2025 11:30 AM CDT Oxygen Saturation 98% 03/23/2025 11:30 AM CDT Inhaled Oxygen Concentration - - Weight 122.3 kg (269 lb 10 oz) 03/14/2025 8:27 P M CDT Height 182.9 cm (6' 0.01 ) 03/15/2025 6:20 AM CD T Body Mass Index 36.56 03/14/2025 8:27 PM CDT Plan of Treatment Not on file Medical Devices Implanted Type Area Paid Search Marketing Strategist Device Identifier Shelf Expiration Date Model / Serial / Lot Stent Heart Description:X4 [employer] Seprafilm 6x5in Barrier Adhesion Sterile Disposable Latex Free [id number] - [id number] Implanted:Qty: 1 on 07/28/2024 by Brittany Harrison MD at [facility] Right: Wrist [employer] 02/18/2026 [id number] / / [employer] Virage 3.5mm 16mm Polyaxial Spine Screw Bone Nonsterile 07.57864.009 - [id number] Implanted:Qty: 3 on 03/14/2025 by Josh Sharif MD PhD at [facility] N/A: Spine Cervical [employer] 07.84719.0 09 / / [employer] Virage 3.5mm 14mm Polyaxial Spine Screw Bone Nonsterile 07.32615.007 - [id number] Implanted:Qty: 3 on 03/14/2025 by Josh Sharif MD PhD at [facility] N/A: Spine Cervical [employer] 07.48274.0 07 / / [employer] Screw Spinal Pedicle Polyaxial Solid Virage 5.5x25mm 07.68581.019 - [id number] Implanted:Qty: 4 on 03/14/2025 by Josh Sharif MD PhD at [facility] N/A: Spine Cervical [employer] 07.52084.0 19 / / [employer] Virage 4mm 14mm Self Tap Polyaxial Friction Fit Spine Screw Bone 07.41811.050 - [id number] Implanted:Qty: 1 on 03/14/2025 by Josh Sharif MD PhD at [facility] N/A: Spine Cervical [employer] 07.43020.0 50 / / [employer] Virage 3.5mm 120mm Curve [place] Spinal Titanium Oct Fixation System 07.52841.014 - [id number] Implanted:Qty: 2 on 03/14/2025 by Josh Sharif MD PhD at [facility] N/A: Spine Cervical [employer] 07.31397.0 14 / / [employer] Virage 4mm 16mm Self Tap Polyaxial Friction Fit Spine Screw Bone 07.20863.052 - [id number] Implanted:Qty: 1 on 03/14/2025 by Josh Sharif MD PhD at [facility] N/A: Spine Cervical [employer] 07.36422.0 52 / / [employer] Virage Closure Top Lid Sterilization Nonsterile Disposable Screw 07.03178.001 - [id number] Implanted:Qty: 13 on 03/14/2025 by Josh Sharif MD PhD at [facility] N/A: Spine Cervical [employer] 07.27294.0 01 / / [employer] Virage Closure Top Lid Sterilization Nonsterile Disposable Screw 07.84242.001 - [id number] Implanted:Qty: 9 on 03/14/2025 by Josh Sharif MD PhD at [facility] N/A: Spine Cervical [employer] 07.54520.0 01 / / [employer] Graft Bone Filler Cortical Allosync 10cc Fiber Abs-2008-02 - [id number] - [id number] Implanted:Qty: 1 on 03/14/2025 by Josh Sharif MD PhD at [facility] [employer] [id number] 06/09/2029 ABS-2007- 0 4 / [id number] / [employer] Graft Bone Filler Cortical Allosync 10cc Fiber Abs-2008-02 - [id number] - [id number] Implanted:Qty: 1 on 03/14/2025 by Josh Sharif MD PhD at [facility] [employer] [id number] 06/09/2029 ABS-2007- 0 4 / [id number] / [employer] Graft Bone Filler Cortical Allosync 10cc Fiber Abs-2008-02 - [id number] - [id number] Implanted:Qty: 1 on 03/14/2025 by Josh Sharif MD PhD at [facility] N/A: Spine Cervical [employer] [id number] 06/09/2029 ABS-2007-0 4 / [id number] / [employer] Graft Bone Filler Cortical Allosync 10cc Fiber Abs-2008-02 - [id number] - [id number] Implanted:Qty: 1 on 03/14/2025 by Josh Sharif MD PhD at [facility] N/A: Spine Cervical [employer] [id number] 06/09/2029 ABS-2007-0 4 / [id number] / [employer] Graft Bone Filler Cortical Allosync 10cc Fiber Abs-2008-02 - [id number] - [id number] Implanted:Qty: 1 on 03/14/2025 by oJsh Sharif MD PhD at [facility] N/A: Spine Cervical [employer] [id number] 06/08/2029 ABS-2007-0 4 / [id number] / [employer] Virage 4mm 18mm Self Tap Polyaxial Friction Fit Spine Screw Bone 07.88518.054 - [id number] Implanted:Qty: 1 on 03/14/2025 by Josh Sharif MD PhD at [facility] N/A: Spine Cervical [employer] 07.31946.0 54 / / [employer] Spine Graft Bone Filler Lg Fibergraft Bg 12.5cc Fibers [id number] - [id number] Implanted:Qty: 1 on 03/14/2025 by Josh Sharif MD PhD at [facility] N/A: Spine Cervical [employer] Spine [id number] / / Procedures Procedure Name Priority Date/Time Associated Diagnosis Comments POCT GLUCOSE DEVICE Routine 03/23/2025 1 2:07 PM CDT POCT GLUCOSE DEVICE Routine 03/23/2025 8 :42 AM CDT POCT GLUCOSE DEVICE Routine 03/23/2025 3 :20 AM CDT POCT GLUCOSE DEVICE Routine 03/22/2025 8 :09 PM CDT EGFR Routine 03/22/2025 8:08 PM CDT DIFFERENTIAL AUTO Routine 03/22/2025 8:0 8 PM CDT PHOSPHORUS Routine 03/22/2025 8:08 PM CDT BASIC METABOLIC PANEL Routine 03/22/2025 8:08 PM CDT CBC WITH AUTO DIFFERENTIAL Routine 03/22/2025 8:08 PM CDT POCT GLUCOSE DEVICE Routine 03/22/2025 4 :41 PM CDT POCT GLUCOSE DEVICE Routine 03/22/2025 1 1:29 AM CDT POCT GLUCOSE DEVICE Routine 03/22/2025 7 :28 AM CDT POCT GLUCOSE DEVICE Routine 03/22/2025 2 :25 AM CDT EGFR Routine 03/21/2025 10:33 PM CDT DIFFERENTIAL AUTO Routine 03/21/2025 10: 33 PM CDT PHOSPHORUS Routine 03/21/2025 10:33 PM CDT BASIC METABOLIC PANEL Routine 03/21/2025 10:33 PM CDT CBC WITH AUTO DIFFERENTIAL Routine 03/21/2025 10:33 PM CDT POCT GLUCOSE DEVICE Routine 03/21/2025 8 :31 PM CDT POCT GLUCOSE DEVICE Routine 03/21/2025 4 :48 PM CDT POCT GLUCOSE DEVICE Routine 03/21/2025 1 1:35 AM CDT POCT GLUCOSE DEVICE Routine 03/21/2025 7 :38 AM CDT TROPONIN I HIGH-SENSITIVITY 2-HOUR Timed 03/21/2025 5:40 AM CDT EGFR Routine 03/21/2025 3:36 AM CDT DIFFERENTIAL AUTO Routine 03/21/2025 3:3 6 AM CDT PHOSPHORUS STAT 03/21/2025 3:36 AM CDT MAGNESIUM STAT 03/21/2025 3:36 AM CDT TROPONIN I HIGH-SENSITIVITY SERIES (BASELINE, 2HR, 4HR, 6HR) STAT 03/21/2025 3:36 AM CDT PHOSPHORUS Routine 03/21/2025 3:36 AM CDT BASIC METABOLIC PANEL Routine 03/21/2025 3:36 AM CDT CBC WITH AUTO DIFFERENTIAL Routine 03/21/2025 3:36 AM CDT TYPE AND SCREEN Timed 03/21/2025 3:36 AM CDT POCT GLUCOSE DEVICE Routine 03/21/2025 2 :06 AM CDT POCT GLUCOSE DEVICE Routine 03/20/2025 8 :32 PM CDT POCT GLUCOSE DEVICE Routine 03/20/2025 4 :50 PM CDT POCT GLUCOSE DEVICE Routine 03/20/2025 1 1:59 AM CDT TROPONIN I HIGH-SENSITIVITY 6-HOUR Timed 03/20/2025 10:43 AM CDT POCT GLUCOSE DEVICE Routine 03/20/2025 7 :40 AM CDT TROPONIN I HIGH-SENSITIVITY 4-HOUR Timed 03/20/2025 7:17 AM CDT TROPONIN I HIGH-SENSITIVITY 2-HOUR Timed 03/20/2025 5:12 AM CDT EGFR STAT 03/20/2025 3:33 AM CDT TROPONIN I HIGH-SENSITIVITY SERIES (BASELINE, 2HR, 4HR, 6HR) Routine 03/20/2025 3:33 AM CDT PHOSPHORUS STAT 03/20/2025 3:33 AM CDT MAGNESIUM STAT 03/20/2025 3:33 AM CDT BASIC METABOLIC PANEL STAT 03/20/2025 3:33 AM CDT ECG 12-LEAD STAT 03/20/2025 3:25 AM CDT POCT GLUCOSE DEVICE Routine 03/20/2025 2 :05 AM CDT EGFR Routine 03/19/2025 11:02 PM CDT DIFFERENTIAL AUTO Routine 03/19/2025 11: 02 PM CDT PHOSPHORUS Routine 03/19/2025 11:02 PM CDT BASIC METABOLIC PANEL Routine 03/19/2025 11:02 PM CDT CBC WITH AUTO DIFFERENTIAL Routine 03/19/2025 11:02 PM CDT POCT GLUCOSE DEVICE Routine 03/19/2025 8 :51 PM CDT POCT GLUCOSE DEVICE Routine 03/19/2025 4 :35 PM CDT POCT GLUCOSE DEVICE Routine 03/19/2025 1 1:27 AM CDT POCT GLUCOSE DEVICE Routine 03/19/2025 7 :43 AM CDT POTASSIUM, WHOLE BLOOD STAT 5:18 AM CDT POCT GLUCOSE DEVICE Routine 03/19/2025 2 :02 AM CDT EGFR Routine 03/18/2025 8:26 PM CDT DIFFERENTIAL AUTO Routine 03/18/2025 8:2 6 PM CDT PHOSPHORUS Routine 03/18/2025 8:26 PM CDT BASIC METABOLIC PANEL Routine 03/18/2025 8:26 PM CDT CBC WITH AUTO DIFFERENTIAL Routine 03/18/2025 8:26 PM CDT POCT GLUCOSE DEVICE Routine 03/18/2025 8 :21 PM CDT POCT GLUCOSE DEVICE Routine 03/18/2025 4 :20 PM CDT POCT GLUCOSE DEVICE Routine 03/18/2025 1 1:36 AM CDT XR SCOLIOSIS AP LAT IP Routine 03/18/2025 1 1:11 AM CDT POCT GLUCOSE DEVICE Routine 03/18/2025 7 :38 AM CDT POCT GLUCOSE DEVICE Routine 03/18/2025 4 :06 AM CDT POCT GLUCOSE DEVICE Routine 03/17/2025 1 1:49 PM CDT POCT GLUCOSE DEVICE Routine 03/17/2025 8 :01 PM CDT EGFR Routine 03/17/2025 6:34 PM CDT DIFFERENTIAL AUTO Routine 03/17/2025 6:3 4 PM CDT PHOSPHORUS Routine 03/17/2025 6:34 PM CDT MAGNESIUM Routine 03/17/2025 6:34 PM CDT BASIC METABOLIC PANEL Routine 03/17/2025 6:34 PM CDT CBC WITH AUTO DIFFERENTIAL Routine 03/17/2025 6:34 PM CDT TYPE AND SCREEN Timed 03/17/2025 6:34 PM CDT PHOSPHORUS Timed 03/17/2025 6:34 PM CDT XR SPINE CERVICAL 2 OR 3 VIEWS IP Routine 03/17/2025 5:49 PM CDT POCT GLUCOSE DEVICE Routine 03/17/2025 5 :00 PM CDT POCT GLUCOSE DEVICE Routine 03/17/2025 3 :05 PM CDT POCT GLUCOSE DEVICE Routine 03/17/2025 1 2:37 PM CDT CRITICAL CARE Routine 03/17/2025 11:41 AM CDT Cervical disc disorder with myelopathy of mid-cervical region POCT GLUCOSE DEVICE Routine 03/17/2025 1 1:04 AM CDT POCT GLUCOSE DEVICE Routine 03/17/2025 1 0:16 AM CDT POCT GLUCOSE DEVICE Routine 03/17/2025 9 :30 AM CDT POCT GLUCOSE DEVICE Routine 03/17/2025 7 :08 AM CDT POCT GLUCOSE DEVICE Routine 03/17/2025 5 :11 AM CDT POCT GLUCOSE DEVICE Routine 03/17/2025 3 :38 AM CDT POCT GLUCOSE DEVICE Routine 03/17/2025 1 :11 AM CDT POCT GLUCOSE DEVICE Routine 03/17/2025 1 2:05 AM CDT POCT GLUCOSE DEVICE Routine 03/17/2025 1 2:04 AM CDT POCT GLUCOSE DEVICE Routine 03/16/2025 1 0:29 PM CDT POCT GLUCOSE DEVICE Routine 03/16/2025 9 :02 PM CDT CRITICAL CARE Routine 03/16/2025 7:48 PM CDT Cervical disc disorder with myelopathy of mid-cervical region POCT GLUCOSE DEVICE Routine 03/16/2025 7 :25 PM CDT POCT GLUCOSE DEVICE Routine 03/16/2025 6 :16 PM CDT POCT GLUCOSE DEVICE Routine 03/16/2025 5 :21 PM CDT CRITICAL CARE Routine 03/16/2025 3:31 PM CDT Cervical disc disorder with myelopathy of mid-cervical region POCT GLUCOSE DEVICE Routine 03/16/2025 3 :04 PM CDT POCT GLUCOSE DEVICE Routine 03/16/2025 1 :13 PM CDT POCT GLUCOSE DEVICE Routine 03/16/2025 1 2:04 PM CDT POCT GLUCOSE DEVICE Routine 03/16/2025 1 0:51 AM CDT POCT GLUCOSE DEVICE Routine 03/16/2025 1 0:51 AM CDT POCT GLUCOSE DEVICE Routine 03/16/2025 9 :02 AM CDT POCT GLUCOSE DEVICE Routine 03/16/2025 7 :18 AM CDT POCT GLUCOSE DEVICE Routine 03/16/2025 5 :00 AM CDT POCT GLUCOSE DEVICE Routine 03/16/2025 3 :07 AM CDT POCT GLUCOSE DEVICE Routine 03/16/2025 1 :31 AM CDT POCT GLUCOSE DEVICE Routine 03/16/2025 1 2:03 AM CDT CRITICAL CARE Routine 03/15/2025 11:12 PM CDT Cervical disc disorder with myelopathy of mid-cervical region POCT GLUCOSE DEVICE Routine 03/15/2025 1 1:05 PM CDT POCT GLUCOSE DEVICE Routine 03/15/2025 1 0:07 PM CDT POCT GLUCOSE DEVICE Routine 03/15/2025 9 :09 PM CDT EGFR Routine 03/15/2025 8:39 PM CDT VANCOMYCIN LEVEL TROUGH Routine 03/15/2025 8:39 PM CDT CRITICAL RESULT CALLBACK CHEMISTRY Routine 03/15/2025 8:39 PM CDT DIFFERENTIAL AUTO Routine 03/15/2025 8:3 9 PM CDT PHOSPHORUS Routine 03/15/2025 8:39 PM CDT Results for this procedure are in theresult
--- OUTSIDE RECORDS SUMMARY | 2025-04-05 14:45 | XMS_ITS | Encounter Summary ---
Author Organization [facility] Address [address] [place] [address] Phone Care Team Providers Care Rock Contractor Name Role Phone Faizan Stein MD Primary Care Provider Singh Dee MD Unavailable [phone] Louise Reyes DPT Unavailable [phone] Encounter Details Date Type Department Care Team (Late st Contact Info) Description 08/24/2024 Orders Only [facility] Surgery [address] [facility] Advanced Medicine 6th [place] [address] [place] [id number] Brittany Harrison MD [address] [place] [address] Social History Tobacco Use Types Packs/Day Years Used Date Smoking Tobacco: Former Cigarettes Q uit: 1970 Smokeless Tobacco: Never AUDIT-C Answer Date Recorded Q1: How often do you have a drink containing alc ohol? 2-4 times a month 07/28/2024 Q2: How many drinks containi ng alcohol do you have on a typical day when you are drinking? 1 or 2 07/28/2024 Q3: How often do you have si x or more drinks on one occasion? Never 07/28/2024 Personal Safety Answer Date Recorded Have you ever been in or are you currently in a harmful physical or emotional relationship or is someone making you feel afraid or unsafe? 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 Gender Identity Not on file Sexual Orientation Not on file documented as of this encounter Plan of Treatment Not on file documented as of this encounter Visit Diagnoses Not on filedocumented in this encounter Care Teams Rock Contractor Relationship Specialty Start Date End Date Faizan Stein MD [address] [place] [address] PCP - General Family Practice 02/10/24 Singh Dee MD [address] [place] [address] Referring Physician Orthopedic Surgery 02/10/24 Louise Reyes DPT [address] [place] [address] Physical Therapist Physical Therapy 04/28/24 11/26/24 documented as of this encounter
--- NOTE | 2025-04-05 14:54 | ED.GENADULT ---
HPI - General Adult General Chief complaint: Shortness of Breath/Dyspnea Stated complaint: SOB Time Seen by Provider: 04/05/25 14:34 History of Present Illness HPI narrative: Patient is a 74-year-old male who presents ER with shortness of breath. Diagnosed with pneumonia 5 days ago. He is currently on supplemental oxygen due to low oxygen level of 88% at the inpatient rehab, he has had 4 breathing treatments, when oxygen was turned off he was satting appropriately in the mid 90s. Has some mild discomfort left chest that he noticed last night but denies any cardiac chest pain. Reports he has had 4 stents and this is nothing like cardiac chest pain. Reports that he was supposed to get a CT scan of his chest with the rehab could not arrange transport forms to they dial 911 and made him sign paperwork that he did not want to sign. He is pretty upset. No hemoptysis. No leg swelling. No history of heart failure. No pain with deep breath. Related Data Home Medications Medication Instructions Recorded Confirmed Last Taken Type acetaminophen 500 mg capsule 1,000 mg PO Q6H 03/23/25 03/23/25 Unknown History albuterol sulfate 90 mcg/actuation 2 inh inhalation Q4H PRN wheezing 03/23/25 03/23/25 Unknown History aerosol inhaler (Ventolin HFA) ascorbic acid (vitamin C) 1,000 mg 1 g PO DAILY 03/23/25 03/23/25 Unknown History tablet aspirin 81 mg tablet,delayed 81 mg PO DAILY 03/23/25 03/23/25 03/07/25 History release (Enteric Coated Aspirin) atorvastatin 10 mg tablet (Lipitor) 10 mg PO DAILY 03/23/25 03/23/25 Unknown History cyclobenzaprine 5 mg tablet 5 mg PO TID PRN muscle spasm 03/23/25 03/23/25 Unknown History dulaglutide 1.5 mg/0.5 mL 1.5 mg subcut WEEKLY 03/23/25 03/23/25 Unknown History subcutaneous pen injector (Trulicity) enoxaparin 40 mg/0.4 mL 40 mg subcut DAILY 03/23/25 03/23/25 Unknown History subcutaneous syringe ergocalciferol (vitamin D2) 1,250 1,250 mcg PO WEEKLY 03/23/25 03/23/25 Unknown History mcg (50,000 unit) capsule flaxseed oil 1,000 mg capsule 1,000 mg PO DAILY 03/23/25 03/23/25 Unknown History gabapentin 300 mg capsule 600 mg PO TID 03/23/25 03/23/25 Unknown History lidocaine 5 % topical patch 2 patch topical DAILY 03/23/25 03/23/25 Unknown History lisinopril 5 mg tablet 5 mg PO DAILY 03/23/25 03/23/25 Unknown History metformin 1,000 mg tablet 1,000 mg PO DAILY 03/23/25 03/23/25 Unknown History methocarbamol 750 mg tablet 750 mg PO TID 03/23/25 03/23/25 Unknown History tcqbovirzpkf-qnheqeed-cvxvvy 1 tablet PO DAILY 03/23/25 03/23/25 Unknown History tablet (Multivitamin 50 Plus tablet) oxycodone 5 mg tablet 5 mg PO Q4H PRN pain 03/23/25 03/23/25 Unknown History polyethylene glycol 3350 17 17 g PO DAILY 03/23/25 03/23/25 Unknown History gram/dose oral powder sennosides 8.6 mg-docusate sodium 2 tab-cap PO BID 03/23/25 03/23/25 Unknown History 50 mg tablet (Senna with Docusate Sodium) Allergies Allergy/AdvReac Type Severity Reaction Status Date / Time cat dander Allergy Unknown Unknown Verified 04/05/25 14:40 Review of Systems Review of Systems: All systems reviewed & are unremarkable except as noted in HPI and below Constitutional: Constitutional: Reports no additional constitutional complaints ENT: Reports system reviewed and no additional complaints, except as documented Cardiovascular: Cardiovascular: Reports no additional cardiovascular complaints Respiratory: Respiratory: Reports no additional respiratory complaints Gastrointestinal: Gastrointestinal: Reports no additional gastrointestinal complaints [facility] Past Medical History Medical History (Updated 04/05/25 @ 17:51 by Vishal Blakely MD) Cervical vertebral fusion Peripheral artery disease Coronary artery disease Diabetes Hypertension Cervical disc disorder Social History Social History Smoking status: Former smoker Alcohol intake: never Substance use: never Substance use type: does not use Do You Feel Safe in your Home?: Yes Lack of Transportation: No Lack of Food: Never True Current Housing: I Have Housing Concerned About Future Housing: No Difficulty Paying Gas/Electric Bills: No Difficulty Paying for Meds: No Currently Unemployed: No Education: Don't Know Difficulty w/ Childcare or Family Care: No Spiritual care concerns: No Exam Narrative: GENERAL: Well-appearing, well-nourished, and in no acute distress. HEAD: Normocephalic, atraumatic. ENT: Mucous membranes moist. NECK: Supple. CHEST: Bibasilar rales. No respiratory distress. HEART: Regular rate and rhythm. Normal peripheral pulses. ABDOMEN: Soft, nontender, nondistended. EXTREMITIES: Normal range of motion. No edema. SKIN: Warm, dry, no rash. NEURO: Alert and oriented x3. PSYCH: Normal mood and affect. Course Course Emergency Course: No PE. Discussed with charge nurse at inpatient rehab who has accepted the patient back. Patient did receive a breathing treatment here. Negative troponin. Continue Levaquin that was prescribed. Vital Signs Vital signs: Vital Signs Temperature 98.0 F 04/05/25 14:31 Pulse Rate 95 04/05/25 14:31 Respiratory Rate 18 04/05/25 14:31 Blood Pressure 123/80 04/05/25 14:31 Pulse Oximetry 93 04/05/25 14:31 Oxygen Delivery Room Air 04/05/25 14:31 Temperature 97.9 F 04/05/25 17:20 Pulse Rate 94 04/05/25 17:20 Respiratory Rate 20 04/05/25 17:20 Blood Pressure 124/74 04/05/25 17:20 Pulse Oximetry 94 04/05/25 17:20 Oxygen Delivery Room Air 04/05/25 15:24 Medical Decision Making Vital Signs Vital Signs: Vital Signs Temperature 98.0 F 04/05/25 14:31 Pulse Rate 95 04/05/25 14:31 Respiratory Rate 18 04/05/25 14:31 Blood Pressure 123/80 04/05/25 14:31 Pulse Oximetry 93 04/05/25 14:31 Oxygen Delivery Room Air 04/05/25 14:31 Temperature 97.9 F 04/05/25 17:20 Pulse Rate 94 04/05/25 17:20 Respiratory Rate 20 04/05/25 17:20 Blood Pressure 124/74 04/05/25 17:20 Pulse Oximetry 94 04/05/25 17:20 Oxygen Delivery Room Air 04/05/25 15:24 Lab Data 04/05/25 14:50 04/05/25 14:50 Labs: Lab Results 04/05/25 Range/Units 14:50 WBC 9.4 (4.5-10.0) K/mm3 RBC 3.82 L (4.6-6.20) M/mm3 Hgb 11.1 L (14.0-18.0) g/dL Hct 35.0 L (42.0-52.0) % MCV 91.6 (80-100) fl MCH 29.1 (26-34) pg MCHC 31.7 L (32-36) g/dl RDW 13.9 (11.5-14.5) % Plt Count 333 (150-375) k/mm3 MPV 10.7 H (7.4-10.4) fl Immature Gran % (Auto) 0.6 H (0-0.5) % Neut % (Auto) 63.1 (45.5-73.1) % Lymph % (Auto) 23.9 (18.3-44.2) % [place] % (Auto) 6.3 (2.6-8.5) % Eos % (Auto) 5.0 H (0-4.4) % Baso % (Auto) 1.1 (0.2-1.2) % Lymph # (Auto) 2.25 (0.9-3.2) K/mm3 [place] # (Auto) 0.6 (0.1-0.6) K/mm3 Eos # (Auto) 0.5 H (0-0.3) K/mm3 Baso # (Auto) 0.1 (0.0-0.1) K/mm3 Abs Immat Gran (auto) 0.06 H (0.00-0.031) K/mm3 Absolute Neuts (auto) 6.0 (1.3-6.7) K/mm3 Absolute Nucleated RBC 0.000 (0.0-0.012) K/mm3 Band Neutrophils % Not Reportable Nucleated RBC % 0.0 (0.0-0.2) % Platelet Estimate Adequate (Adequate) % Immature Plt Fraction 4.6 (0.9-11.2) % Schistocytes None seen PT 14.3 (11.1-14.7) Seconds INR 1.1 APTT 28.4 (22.3-36.8) Seconds D-Dimer 1.74 H (<0.48) ug/mL Sodium 134 L (137-145) mmol/L Potassium 4.9 (3.4-5.0) mmol/L Chloride 100 (98-107) mmol/L Carbon Dioxide 28 (22-30) mmol/L Anion Gap 6 (4-12) mmol/L BUN 16 (9-20) mg/dL Creatinine 0.65 L (0.7-1.3) mg/dL Estim Creat Clear Calc 111 ml/min Estimated GFR > 60 (59 - ) Glucose 223 H (65-110) mg/dL Calcium 9.3 (8.4-10.2) mg/dL Total Bilirubin 0.3 (0.2-1.3) mg/dL AST 35 (17-59) U/L ALT 38 (6-50) U/L Alkaline Phosphatase 119 (38-126) U/L Troponin I < 0.012 (0.000-0.034) ng/mL NT-Pro-B Natriuret Pep 44 (19.9-100) pg/mL Total Protein 6.0 L (6.3-8.2) g/dL Albumin 3.4 L (3.5-5.1) g/dL Imaging Data Radiologist's impression: ITS Impressions Chest X-Ray 04/05/25 15:03 Impression: 1: Mild interstitial edema. Differential diagnosis includes atypical pneumonia. Chest CTA 04/05/25 16:55 IMPRESSION: 1. No pulmonary embolism. 2. Bilateral basal pneumonia more on the left side. Pneumonia in the right upper lobe posteriorly. Follow-up to resolution advised. 3. Mediastinal lymphadenopathy. 4. Soft tissue density above the left adrenal gland which may be a diverticulum from the stomach. Further evaluation advised. ECG Data EKG #1: ECG completion date: 04/05/25 ECG completion time: 14:38 EKG Interpretation: normal rate (92), sinus rhythm, non-specific ST changes, normal QRS, normal QT and NL axis Discharge Plan Discharge Clinical Impression: Pneumonia Patient Disposition: Inpatient Rehab Facility Condition: Stable Instructions: Pneumonia (ED) Additional Instructions: Please return to the emergency department if you develop severe and persistent chest pain, difficulty breathing, dizziness, leg swelling or if you are coughing up blood as these can be signs of a medical emergency. Please call your doctor for a follow up appointment to determine the need for further testing. Patient Language: Bangladeshi Prescriptions: No Action acetaminophen 500 mg capsule 1,000 mg PO Q6H albuterol sulfate [Ventolin HFA] 90 mcg/actuation HFA aerosol inhaler 2 inh inhalation Q4H PRN (Reason: wheezing) ascorbic acid (vitamin C) 1,000 mg tablet 1 g PO DAILY Rx Instructions: Take before breakfast aspirin [Enteric Coated Aspirin] 81 mg tablet,delayed release (DR/EC) 81 mg PO DAILY Rx Instructions: Take before breakfast atorvastatin [Lipitor] 10 mg tablet 10 mg PO DAILY cyclobenzaprine 5 mg tablet 5 mg PO TID PRN (Reason: muscle spasm) enoxaparin 40 mg/0.4 mL syringe 40 mg subcut DAILY ergocalciferol (vitamin D2) 1,250 mcg (50,000 unit) capsule 1,250 mcg PO WEEKLY Rx Instructions: Start taking on March 26, 2025 flaxseed oil 1,000 mg capsule 1,000 mg PO DAILY Rx Instructions: Take before breakfast gabapentin 300 mg capsule 600 mg PO TID lidocaine 5 % adhesive patch,medicated 2 patch topical DAILY Rx Instructions: leave on most painful area for up to 12 hrs lisinopril 5 mg tablet 5 mg PO DAILY Rx Instructions: Take before breakfast metformin 1,000 mg tablet 1,000 mg PO DAILY methocarbamol 750 mg tablet 750 mg PO TID Multivitamin 50 Plus Tablet 1 tablet PO DAILY oxycodone 5 mg tablet 5 mg PO Q4H PRN (Reason: pain) polyethylene glycol 3350 17 gram/dose powder 17 g PO DAILY sennosides-docusate sodium [Senna with Docusate Sodium] 8.6-50 mg tablet 2 tab-cap PO BID Trulicity 1.5 mg/0.5 mL pen injector 1.5 mg subcut WEEKLY Rx Instructions: Inject 1.5 mL (4.5 mg total) under the skin once a week on Fridays. Follow-up/Referrals: UNKNOWN,DOCTOR [Primary Care Provider] - 3 Days
[2025-04-05 15:08] LABS: Basophils Absolute Auto 0.1 K/mm3 (0.0-0.1); Basophils Percent Auto 1.1 % (0.2-1.2); Eosinophils Absolute Auto 0.5 K/mm3 (0-0.3); Hemoglobin 11.1 g/dL (14.0-18.0); Immature Granulocyte Absolute 0.06 K/mm3 (0.00-0.031); Immature Granulocyte Percent A 0.6 % (0-0.5); Immature Platelet Fraction Pct 4.6 % (0.9-11.2); Lymphocytes Absolute Auto 2.25 K/mm3 (0.9-3.2); Lymphocytes Percent Auto 23.9 % (18.3-44.2); Mean Corpuscular HGB Conc 31.7 g/dl (32-36); Mean Corpuscular Hemoglobin 29.1 pg (26-34); Mean Corpuscular Volume 91.6 fl (80-100); Mean Platelet Volume 10.7 fl (7.4-10.4); Monocytes Absolute Auto 0.6 K/mm3 (0.1-0.6); Monocytes Percent Auto 6.3 % (2.6-8.5); Neutrophils Percent Auto 63.1 % (45.5-73.1); Platelet Count Result 333 k/mm3 (150-375); Red Blood Count 3.82 M/mm3 (4.6-6.20); Red Cell Distribution Width 13.9 % (11.5-14.5); White Blood Count 9.4 K/mm3 (4.5-10.0)
[2025-04-05 15:16] LABS: Alanine Aminotransferase 38 U/L (6-50); Albumin Level 3.4 g/dL (3.5-5.1); Alkaline Phosphatase 119 U/L (38-126); Anion Gap 6 mmol/L (4-12); Aspartate Amino Transferase 35 U/L (17-59); Bilirubin,Total 0.3 mg/dL (0.2-1.3); Blood Urea Nitrogen 16 mg/dL (9-20); Calcium 9.3 mg/dL (8.4-10.2); Carbon Dioxide 28 mmol/L (22-30); Chloride 100 mmol/L (98-107); Estimated CRCL calculation 111 ml/min; Estimated Glomerular Filt Rate > 60; Glucose 223 mg/dL (65-110); Potassium 4.9 mmol/L (3.4-5.0); Sodium 134 mmol/L (137-145)
[2025-04-05] MEDS: IPRATROPIUM 0.5 MG/ALBUTEROL SULFATE 2.5 MG AMPUL.NEB 3 ML INHALATION (15:18)
[2025-04-05 15:19] LABS: INR 1.1; Prothrombin Time 14.3 Seconds (11.1-14.7)
[2025-04-05 15:20] LABS: Partial Thromboplastin Time 28.4 Seconds (22.3-36.8)
[2025-04-05 15:21] LABS: Platelet Estimate Adequate (Adequate); Schistocytes None Seen
[2025-04-05 15:28] LABS: D Dimer 1.74 ug/mL (<0.48); NT Pro B Type Natriuretic Pept 44 pg/mL (19.9-100); Troponin I < 0.012 ng/mL (0.000-0.034)
--- NOTE | 2025-04-05 17:56 | PC.NURSE ---
ERP called to [facility] and spoke with the charge nurse and informed her of ED findings
--- NOTE | 2025-04-05 18:16 | PC.NURSE ---
report called to [facility] and informed [facility] is bringing him back to facility
== END 2025-04-05 18:18 ==
PROVIDERS: Emergency Medicine; Emergency Provider Emergency Medicine
DX: J18.9 Pneumonia, unspecified organism (principal); I25.10 Atherosclerotic heart disease of native coronary artery without angina pectoris; I10 Essential (primary) hypertension; Z87.891 Personal history of nicotine dependence
CPT/HCPCS: 36415; 71045; 71275; 80053; 83880; 84484; 85025; 85055; 85380; 85610; 85730; 93005; 94640; 99284; Q9967